=== PATIENT | male | born 2000 | race Two or more races ===

== ENCOUNTER 2021-08-22 15:36 | Emergency (ER) | payer OTHER ==
[~2021-08-22] VITALS: Ht 182.9 cm; Wt 106.6 kg
[~2021-08-22 15:36] MED LIST: AMOXICILLI125 MG/5 M PO; OMNICEF300 MG PO; TYLENOL W-CODEI1 TAB PO; VIGAMOX3 ML OP
== END 2021-08-23 | disposition home or self-care (01) ==
LOC: ER 15:36
DX: M79.18 Myalgia, other site (principal); Z20.822 Contact with and (suspected) exposure to COVID-19